=== PATIENT | male | born 1955 | race Caucasian/White ===

== ENCOUNTER 2020-05-26 03:15 | Inpatient (IN) | payer MEDICARE, OTHER ==
[~2020-05-26] VITALS: Ht 172.7 cm; Wt 88.1 kg
[2020-05-26] MEDS ORDERED: POTCHL20ER PO (03:54)
[2020-05-26] MEDS ORDERED: FURO80 PO (03:55)
[2020-05-26] MEDS ORDERED: HYDROCODONE-AC1 EAC5 PO (03:56)
[2020-05-26] MEDS ORDERED: LORA.5 PO (03:58)
[2020-05-26] MEDS ORDERED: ALBU90OI INH (03:58)
[2020-05-26] MEDS ORDERED: HUMULIN 70100 UNIT/4 (04:00)
[2020-05-26] MEDS ORDERED: HUMULIN 70100 UNIT/4 SC ×2 (04:01→04:02)
[2020-05-26] MEDS ORDERED: ATOR40TA PO (04:03)
[2020-05-26] MEDS ORDERED: NITROSTAT SL (04:05)
[2020-05-26] MEDS ORDERED: OMEP20ER PO (04:06)
[2020-05-26 05:38] LABS: BASOPHILS ABSOLUTE AUTO 0.03 K/mm3 (0.00-0.23); BASOPHILS PERCENT AUTO 1 % (0-2); EOSINOPHILS ABSOLUTE AUTO 0.08 K/mm3 (0.00-0.68); EOSINOPHILS PERCENT AUTO 1 % (0-6); Hematocrit 49.7 % (37.0-53.0); Hemoglobin 15.2 g/dL (13.5-17.5); IMMATURE GRAN ABSOLUTE AUTO 0.01 K/mm3 (0.00-0.10); IMMATURE GRAN PERCENT AUTO 0 % (0-1); LYMPHOCYTES PERCENT AUTO 16 % (21-46); MONOCYTES ABSOLUTE AUTO 0.58 K/mm3 (0.16-1.47); MONOCYTES PERCENT AUTO 9 % (4-13); Mean Corpuscular HGB 27.3 pg (26.0-34.0); Mean Corpuscular HGB Conc 30.6 g/dL (31.5-36.5); Mean Corpuscular Volume 89 fL (80-100); Mean Platelet Volume 11.2 fL (9.1-12.4); NEUTROPHILS ABSOLUTE AUTO 4.47 K/mm3 (1.96-9.15); NEUTROPHILS PERCENT AUTO 72 % (41-73); Platelet Count 236 K/mm3 (150-400); RDW Coefficient Variation 17.1 % (11.7-14.2); RDW Standard Deviation 55.5 fL (35.1-46.3); Red Blood Cell Count 5.56 M/mm3 (4.30-5.90); White Blood Cell Count 6.17 K/mm3 (4.00-11.30)
--- NOTE | 2020-05-26 06:15 | NUR ---
IO RIGHT LEG IO DC'D WITHOUT DIFFICULTY. PRESSURE HELD X 4-5 MINUTES AND DRSG APPLIED.
[2020-05-26 06:24] LABS: Alanine Aminotransfer (ALT/SGP 21 U/L (12-78); Albumin, Blood 1.5 g/dL (3.4-5.0); Albumin/Globulin Ratio 0.3 (0.8-1.8); Alk Phos 288 U/L (50-136); Anion Gap 4 mmol/L (6-16); Aspartate Aminotrans (AST/SGOT 25 U/L (12-37); Bilirubin, Total 0.4 mg/dL (0.1-1.0); Blood Urea Nitrogen 32 mg/dL (8-24); Bun/Creatinine Ratio 29.4 (12.0-20.0); CO2, Blood 30 mmol/L (21-32); Chloride, Blood 103 mmol/L (98-108); Creatinine, Blood 1.09 mg/dL (0.60-1.20); Globulin, Blood 5.1 g/dL (2.2-4.0); Glomerular Filtration Rate >60 (60-); Glucose, Blood 205 mg/dL (70-99); Potassium, Blood 4.5 mmol/L (3.5-5.5); Sodium, Blood 137 mmol/L (136-145); Total Protein, Blood 6.6 g/dL (6.4-8.2); Troponin I 0.293 ng/mL (0.000-0.040)
[2020-05-26 06:31] LABS: Source, Urine Catheter
[2020-05-26 06:38] LABS: Bilirubin, Urine Neg (Neg); Blood, Urine 5+ (Neg); Glucose Qualitative, Urine 1+ (Neg); Ketones, Urine Neg (Neg); Leukocyte Esterase, Urine 1+ (Neg); Nitrite, Urine Neg (Neg); Protein, Urine 3+ (Neg); Specific Gravity, Urine 1.015 (1.003-1.022); Urobilinogen, Urine NORM (Normal)
[2020-05-26 06:51] LABS: Appearance, Urine Clear (Clear); Color, Urine Yellow (P-Yellow)
[2020-05-26 06:53] LABS: Bacteria Rare /hpf; Squamous Epithelial Cells Few /hpf (Few); White Blood Cells, Urine 25-50 /hpf (0-5)
[2020-05-26 06:54] LABS: Hyaline Casts 0-2 /lpf (0-2)
--- NOTE | 2020-05-26 07:26 | NUR ---
ADMISSION NOTE PATIENT ADMITTED TO ICU 10 FROM THE EMERGENCY DEPARTMENT. THE PATIENT WAS A TRANSFER FROM [facility]. HE WAS ADMITTED FOR CHF EXCACERBATION. HE ARRIVED TO THE UNIT ON ROOM AIR. HIS OXYGEN SATURATION WAS IN THE LOW 80S AND HE WAS TACHYPNEIC AND DYSPNEIC. BIPAP RE-APPLIED. OXYGEN SATURATIONS IMPROVED AND WERE STABLE WITH AN FIO2 OF 25%. LUNGS ARE COARSE WITH EXP. WHEEZES. WORK OF BREATHING IMPROVED WITH BIPAP. PATIENT HESISTANT TO WEAR IT, BUT WAS COMPLIANT WITH WEARING AFTER EDUCATION. HE IS DROWSY, BUT DOES AWAKEN TO ANSWER QUESTIONS APPROPRIATELY. HE IS ORIENTED X 3. HE FALLS ALSEEP IMMEDIATELY WHEN NOT BEING SPOKEN TO. HE HAS 4+ PITTING EDEMA THROUGHOUT (ALL EXTREMTIES, ANASARCA, AND SCROTAL). PULSES ARE DIFFICULT TO PALPATE. RIGHT PEDAL PULSE AUDIBLE VIA DOPPER. 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 WELL HEALED. HE IS NPO AT THIS TIME. ARRIVED WITH CONDOM CATHETER IN PLACE. THE PATIENT HAS SCATTERED WOUNDS OF VARIOUS STATES OF HEALING ON UPPER EXTREMTIES BILATERALLY AND THE RLE. MOST SIGNIFICANTLY THERE IS A WOUND TO THE RIGHT ANTERIOR FOOT WITH ESCHAR PRESENT. THERE IS SIGNIFICANT EXCORIATION TO THE GROIN. ALL EXTREMITIES ARE WEEPING. SKIN TEARS PRESENT RELATED TO WEEPING. FOAM BORDER APPLIED TO COCCYX PROPHYLACTICALLY. ALBUMIN GIVEN AND ANTIOBIOTICS STARTED. MIDLINE PLACED WITH GOOD BLOOD RETURN. PIV X 1 IN RIGHT HAND.
--- NOTE | 2020-05-26 08:54 | NUR ---
CARE ASSUMED ASSESSMENT COMPLETED, PT DROWSY, WAKES TO VERBAL, ORIENTED X4, VERY IRRITABLE BUT REMAINS COOPERATIVE WITH CARE. VSS, SPO2 99% ON BIPAP SETTINGS 08/22, FIO2 DECREASED TO 21% BY RT. LS WITH CRACKLES IN BASES. SKIN IN POOR CONDITION, LE'S RED AND WARM, MULTIPLE DIABETIC/STASIS WOUNDS TO RLE, SEE PICS. L AKA, WELL HEALED. DIFFUSE 3+ EDEMA WITH UE'S WEEPING. CONDOM CATH IN PLACE WITH CLEAR YELLOW URINE.
--- NOTE | 2020-05-26 12:34 | NUR ---
UPDATE DR. ARNDT AT BEDSIDE TO ASSESS PATIENT, NEW ORDERS, PT NOW PCU STATUS. PT HAS BEEN SLEEPY T/O SHIFT, WAKES EASILY, REMAINS ORIENTED, IS NO LONGER IRRITABLE. APPROPRIATE AND COOPERATIVE. HR 90-105 SINUS, BP STABLE, LS HAVE CLEARED WITH LASIX. VOLUME OF URINE OUTPUT NOT LARGE EXPECTED AFTER LASIX, PT REMAINS SEVERELY EDEMATOUS, UE'S WEEPING. ALL EXTREMS ELEVATED ON PILLOWS. SPO2 LOW 90'S ON 21% FIO2 WITH BIPAP 08/22, DESAT MINIMAL, NOT LESS THAN 88% WHEN BIPAP REMOVED FOR ORAL CARE. DIET ORDERED, WILL ALLOW PT TO EAT IF SPO2 MAINTAINED >88%.
[2020-05-26 13:02] LABS: Base Excess Venous 6.6 mmol/L; Bicarbonate Venous 27.1 mmol/L (24.0-30.0); PCO2 Venous 61.6 mmHg (38-42); PO2 Venous 28.3 mmHg (38-42); pH Blood Venous 7.33 (7.34-7.37)
[2020-05-26 13:37] LABS: Troponin I 0.237 ng/mL (0.000-0.040)
--- NOTE | 2020-05-26 17:57 | NUR ---
END OF SHIFT/PCU TRANSFER PT HAS HAD BIPAP OFF SINCE LUNCH, TOELRATING WELL. REMAINS SOB WITH EXERTION BUT REPORTS COMFORT AT REST WITH 1L/NC, SPO2 >90%. LS CLEAR, DIM IN BASES, 1100ML URINE OUTPUT THIS SHIFT. VSS, HR 90-105 SINUS WITH PVC'S, EDEMA UNCHANGED. BUE'S CONTINUE TO WEEP. PT REMAINS ORIENTED X4, PLEASANT AND COOPERATIVE THIS EVENING. NO BM TODAY, SKIN TO BACK AND COCCYX INATACT WITH NO REDNESS NOTED. PT TO PCU 8 AT 1755 WITH MEDS, CHART, AND BELONGINGS, TOLERATED TRANSFER WELL. REPORT TO RECEIVING NURSE.
--- NOTE | 2020-05-26 18:23 | NUR ---
PT RECEIVED FROM ICU 10 REPORT RECEIVED FROM NIKKI ABDI. PT IS HERE FOR ACUTE CHF. PT ALERT AND ORIENTED, VITALS HRR SR/ST WITH PVCS 90-100'S, BP SYSTOLIC 130'S, SATS ABOVE 94% ON 1L OF O2, AFEBRILE. PT HAS BUE AND BLE 2+ TO 4+ PITTING/WEEPING EDEMA. LEFT AKA, WOUNDS AND SCABS ON RLE. FINE CRACKLES ON BILATERAL LOBES. ABLE TO MAKE NEEDS KNOWN, CURRENTLY IN BED CALL LIGHTS WITHIN REACH WILL REPORT TO ONCOMING SHIFT
--- NOTE | 2020-05-27 | NUR ---
PT NEEDED ADDITIONAL D50W FOR BLOOD GLUCOSE LEVELS THAT DROP TO 33. GLUCOSE LEVELS IMPROVE WITH THIS. WITH HS MEDICATIONS, DID SAFE SWALLOW TECHNIQUE TEACHING WHEREAS PT DEMONSTRATES UNDERSTANDING OF CHIN TUCK WITH MEDS AND APPLESAUCE. NO COUGH OR ISSUES WITH SWALLOW. WILL CONTINUE TO DO SPOT CHECKS OF GLUCOSE LEVELS.
[2020-05-27 01:29] LABS: BASOPHILS ABSOLUTE AUTO 0.02 K/mm3 (0.00-0.23); BASOPHILS PERCENT AUTO 0 % (0-2); EOSINOPHILS ABSOLUTE AUTO 0.16 K/mm3 (0.00-0.68); EOSINOPHILS PERCENT AUTO 2 % (0-6); Hematocrit 47.6 % (37.0-53.0); Hemoglobin 14.3 g/dL (13.5-17.5); IMMATURE GRAN ABSOLUTE AUTO 0.01 K/mm3 (0.00-0.10); IMMATURE GRAN PERCENT AUTO 0 % (0-1); LYMPHOCYTES ABSOLUTE AUTO 1.04 K/mm3 (0.84-5.20); LYMPHOCYTES PERCENT AUTO 15 % (21-46); MONOCYTES ABSOLUTE AUTO 0.68 K/mm3 (0.16-1.47); MONOCYTES PERCENT AUTO 10 % (4-13); Mean Corpuscular HGB 26.8 pg (26.0-34.0); Mean Corpuscular Volume 89 fL (80-100); Mean Platelet Volume 11.1 fL (9.1-12.4); NEUTROPHILS ABSOLUTE AUTO 4.89 K/mm3 (1.96-9.15); NEUTROPHILS PERCENT AUTO 72 % (41-73); Platelet Count 231 K/mm3 (150-400); RDW Coefficient Variation 17.2 % (11.7-14.2); RDW Standard Deviation 55.7 fL (35.1-46.3); Red Blood Cell Count 5.33 M/mm3 (4.30-5.90)
[2020-05-27 01:45] LABS: Anion Gap 3 mmol/L (6-16); Blood Urea Nitrogen 36 mg/dL (8-24); Bun/Creatinine Ratio 31.3 (12.0-20.0); CO2, Blood 32 mmol/L (21-32); Calcium, Blood 8.3 mg/dL (8.5-10.1); Chloride, Blood 103 mmol/L (98-108); Creatinine, Blood 1.15 mg/dL (0.60-1.20); Glomerular Filtration Rate >60 (60-); Glucose, Blood 129 mg/dL (70-99); Potassium, Blood 5.1 mmol/L (3.5-5.5); Sodium, Blood 138 mmol/L (136-145)
--- NOTE | 2020-05-27 06:16 | NUR ---
SHIFT SUMMARY PT WAS EXPERIANCING CHF SYMPTOMS WITH 4+ EDEMA IN LOWER RIGHT LEG, LEFT LEG WAS AKA. ARMS SHOWED 3+ PITTING EDEMA, ALL EXTREMITIES WERE COOL TO TOUCH. MOVEMENT IN LEG WAS SIGNIFICANTLY LIMITED, ULCERS ON RIGHT FOOT. PT HAD ELEVATED BP BUT WAS CORRECTED WITH ORDERED MEDS. PT WAS ON BIPAP SATTING AROUND 85-90%, SWITCHED TO NC AT 2LPM AND SATS REMAINED AROUND 95%. PT STATED PAIN ON RIGHT LEG AT IO SITE. PT WAS ABLE TO EAT CRACKERS AND A SANDWICH, DIET WAS ADVANCED. BED IN LOWEST POSITION, CALL LIGHT IN REACH. WILL CONTINUE TO MONITOR UNTIL SHIFT CHANGE.
--- NOTE | 2020-05-27 07:24 | NUR ---
ASSUMED PATIENT CARE. PATIENT RESTING COMFORTABLY IN BED, CONVERSING WITH NURSING STAFF. NO SIGNS OF ACUTE DISTRESS, WCTM.
[2020-05-27 07:32] LABS: Troponin I 0.188 ng/mL (0.000-0.040)
--- NOTE | 2020-05-27 08:32 | NUR ---
PATIENT STATES THAT HE FEELS "LIKE I CHOKED ON SOMETHING" DURING BREAKFAST, PATIENT STATES THAT HE CLEARED THE FOOD, BUT FEELS THAT HE STILL CATCHING UP ON BREATHING. NC APPLIED, MAINTAINED O2 SATS IN UPPER 90S, WCTM.
--- NOTE | 2020-05-27 09:15 | NUR ---
ISTRATE NOTIFIED OF PATIENT ASPIRATION AND INCREASED WOB, CXR AND SPEECH EVAL ORDERED.
--- NOTE | 2020-05-27 17:07 | NUR ---
PATIENT HAD EPISODE OF POSSIBLE FOOD ASPIRATION DURING BREAKFAST THIS MORNING, NOT WITNESSED BY THIS RN. DR. ARNDT NOTIFIED, CXR AND SPEECH EVAL ORDERED, PATIENT NPO FOR REEVALUATION BY SPEECH TOMORROW. PATIENT HAD BLOOD SUGAR OF 60 THIS MORNING, ORANGE JUICE GIVEN, BLOOD SUGAR INCREASED TO 84, THEN BREAKFAST GIVEN. PRE-BREAKFAST DOSE OF INSULIN LISPRO HELD ACCORDING TO ORDER PARAMETERS. CHECKED WITH PHYSICIAN REGARDING LONG ACTING INSULIN COVERAGE THIS MORNING AFTER INCIDENCE OF LOW BLOOD SUGAR, GAVE ORDERED BY MD. PATIENT BLOOD SUGAR 33, ORDERS FOR DEXTROSE GIVEN AND ADMINISTERED, BLOOD SUGAR IMPROVED TO 100+, APPLESAUCE GIVEN BY CHEIKH RN PER SPEECH THERAPY. WCTM. PATIENT CONTINUES ON IV DIURESIS. PATIENT STATES GENERAL DISCOMFORT, TYLENOL AND FENTANYL OFFERED AND ADMINISTERED EACH ONCE THIS SHIFT, PATIENT STATED THAT THESE MEDICATIONS "DON'T DO ANYTHING FOR ME." CARDIOLOGY CONSULT DONE TODAY, RECORDS FROM [facility] REGARDING RECENT CARDIOLOGY RELATED ADMISSION REQUESTED. PATIENT DENIED CHEST PAIN THIS SHIFT.
--- NOTE | 2020-05-27 20:00 | NUR ---
ASSUMED CARE OF PT AT 1915 REPORT RECEIVED. PT PRESENTS IN BED. SOMEWHAT IRRITABLE WITH CONVERSATION. PT IN NO APPARENT DISTRESS AT THIS TIME. WILL REVIEW CHART AND PLAN OF CARE FOR THIS PT.
[2020-05-28 03:51] LABS: BASOPHILS ABSOLUTE AUTO 0.03 K/mm3 (0.00-0.23); BASOPHILS PERCENT AUTO 1 % (0-2); EOSINOPHILS PERCENT AUTO 2 % (0-6); Hematocrit 47.3 % (37.0-53.0); Hemoglobin 14.4 g/dL (13.5-17.5); IMMATURE GRAN ABSOLUTE AUTO 0.01 K/mm3 (0.00-0.10); IMMATURE GRAN PERCENT AUTO 0 % (0-1); LYMPHOCYTES ABSOLUTE AUTO 1.14 K/mm3 (0.84-5.20); LYMPHOCYTES PERCENT AUTO 20 % (21-46); MONOCYTES ABSOLUTE AUTO 0.69 K/mm3 (0.16-1.47); MONOCYTES PERCENT AUTO 12 % (4-13); Mean Corpuscular HGB Conc 30.4 g/dL (31.5-36.5); Mean Corpuscular Volume 89 fL (80-100); NEUTROPHILS ABSOLUTE AUTO 3.75 K/mm3 (1.96-9.15); NEUTROPHILS PERCENT AUTO 66 % (41-73); Platelet Count 245 K/mm3 (150-400); RDW Coefficient Variation 16.9 % (11.7-14.2); RDW Standard Deviation 54.9 fL (35.1-46.3); Red Blood Cell Count 5.34 M/mm3 (4.30-5.90); White Blood Cell Count 5.72 K/mm3 (4.00-11.30)
[2020-05-28 04:14] LABS: Anion Gap 4 mmol/L (6-16); Blood Urea Nitrogen 33 mg/dL (8-24); Bun/Creatinine Ratio 33.4 (12.0-20.0); CO2, Blood 33 mmol/L (21-32); Calcium, Blood 8.3 mg/dL (8.5-10.1); Chloride, Blood 103 mmol/L (98-108); Creatinine, Blood 0.99 mg/dL (0.60-1.20); Glomerular Filtration Rate >60 (60-); Glucose, Blood 51 mg/dL (70-99); Magnesium, Blood 1.9 mg/dL (1.6-2.4); Potassium, Blood 4.7 mmol/L (3.5-5.5); Sodium, Blood 140 mmol/L (136-145)
--- NOTE | 2020-05-28 05:09 | NUR ---
PT HAS HAD SEVERAL EPISODES OF 16-20 BEATS V-TACH THIS NIGHT. REVIEW OF AM LABS REVEAL NO ISSUES WITH ELECTROLYTES. PT HAS DECREASE IN GLUCOSE LEVELS AGAIN THIS AM. (37) COVERED WITH ANOTHER DOSE OF D50W. PT'S SUBSEQUENT CHECK REVEALS >100. PT HAS BEEN ABLE TO TOLERATE Q 2 HOUR TURNS IN BED. DOES HAVE SOME WEAPING EDEMA. WILL CONTINUE TO MONITOR PT, AND WILL REPORT OFF TO ONCOMING RN.
--- NOTE | 2020-05-28 10:10 | NUR ---
ASSUMED CARE AT 0700, REPORT FROM JIN PARRISH. RESTING IN BED IN LOW FOWLERS. A/A/OX4. 02 VIA NC 2L, CONDOM CATH IN PLACE DRAINING CLEAR URINE TO GRAVITY. LEFT LEG ABOVE KNEE AMPUTATION. RIGHT LEG WARM AND RED FROM MID THIGH TO FOOT. MULTIPLE AREAS OF SCABS AND EXCORATIONS ON RIGHT LEG. QUARTER SIZED BLACK DRY SCAB TO RIGHT FOOT NEAR FIRST TOE. MEPILEX IN PLACE ON COCCYX FOR REDNESS, BILATERAL REDNESS AND EXCORIATIONS OF ARMS FROM MID UPPER ARM TO HANDS. BILATERAL HAND SWELLING AND SCROTAL SWELLING NOTED. L/S COARSE THROUGHOUT. NPO AT THIS TIME, DUE TO SWALLOW PRECAUTIONS. CHEMBGS LOW DURING NIGHT, WILL CONTINUE TO MONITOR AND TREAT NEEDED.
[2020-05-28 12:29] LABS: U Amphetamine Screen Not Detected; U Barbituate Screen Not Detected; U Benzodiazapine Screen Not Detected; U Buprenorphine Screen Not Detected; U Cannabinoids Screen DETECTED; U Cocaine Screen Not Detected; U Methadone Screen Not Detected; U Methamphetamine Screen DETECTED; U Opiates Screen DETECTED; U Oxycodone Screen Not Detected; U Phencyclidine Screen Not Detected; U Propoxyphene Screen Not Detected
--- NOTE | 2020-05-28 14:05 | NUR ---
MEPILEX TO COCCYX CHANGED. REDDNED SKIN AT COCCYX, NO WOUND AT THIS TIME.
--- NOTE | 2020-05-28 18:10 | NUR ---
SHIFT SUMMARY: A/A/OX4 THROUGHOUT SHIFT. Q2 REPOSITIONING. VSS, BLOOD SUGAR IMPROVED THROUGHOUT DAY. SOFT MECHANICAL DIET WITH GOOD APPETITE. D5 DC'D AT THIS TIME. WILL CONTINUE MONITOR BLOOD SUGARS AND TREAT NECESSARY. 02 2L VIA NC. SEE PREVIOUS NOTES ON SKIN CONDITION. POWER GLIDE TO UPPER LEFT ARM SALINE LOCKED. WILL CONTINUE TO MONITOR AND TREAT UNTIL CHANGE OF SHIFT.
--- NOTE | 2020-05-28 20:21 | NUR ---
RECEIVED REPORT FROM KAYA ABDI. ASSUMED CARE OF PT. PT A&O X4, NO DISTRESS NOTED AT THIS TIME
[2020-05-29 04:15] LABS: BASOPHILS ABSOLUTE AUTO 0.03 K/mm3 (0.00-0.23); BASOPHILS PERCENT AUTO 1 % (0-2); EOSINOPHILS ABSOLUTE AUTO 0.14 K/mm3 (0.00-0.68); EOSINOPHILS PERCENT AUTO 3 % (0-6); Hematocrit 43.1 % (37.0-53.0); Hemoglobin 13.2 g/dL (13.5-17.5); IMMATURE GRAN ABSOLUTE AUTO 0.01 K/mm3 (0.00-0.10); IMMATURE GRAN PERCENT AUTO 0 % (0-1); LYMPHOCYTES ABSOLUTE AUTO 0.91 K/mm3 (0.84-5.20); LYMPHOCYTES PERCENT AUTO 18 % (21-46); MONOCYTES ABSOLUTE AUTO 0.57 K/mm3 (0.16-1.47); MONOCYTES PERCENT AUTO 11 % (4-13); Mean Corpuscular HGB 27.4 pg (26.0-34.0); Mean Corpuscular HGB Conc 30.6 g/dL (31.5-36.5); Mean Corpuscular Volume 90 fL (80-100); Mean Platelet Volume 11.1 fL (9.1-12.4); NEUTROPHILS ABSOLUTE AUTO 3.34 K/mm3 (1.96-9.15); NEUTROPHILS PERCENT AUTO 67 % (41-73); Platelet Count 229 K/mm3 (150-400); RDW Coefficient Variation 16.8 % (11.7-14.2); RDW Standard Deviation 55.1 fL (35.1-46.3); Red Blood Cell Count 4.81 M/mm3 (4.30-5.90)
[2020-05-29 04:35] LABS: Albumin, Blood 1.5 g/dL (3.4-5.0); Anion Gap 3 mmol/L (6-16); Blood Urea Nitrogen 30 mg/dL (8-24); Bun/Creatinine Ratio 29.1 (12.0-20.0); CO2, Blood 34 mmol/L (21-32); Calcium, Blood 7.8 mg/dL (8.5-10.1); Chloride, Blood 103 mmol/L (98-108); Creatinine, Blood 1.03 mg/dL (0.60-1.20); Glomerular Filtration Rate >60 (60-); Glucose, Blood 130 mg/dL (70-99); Magnesium, Blood 1.7 mg/dL (1.6-2.4); Phosphorus, Blood 3.6 mg/dL (2.5-4.9); Potassium, Blood 4.9 mmol/L (3.5-5.5); Sodium, Blood 140 mmol/L (136-145)
--- NOTE | 2020-05-29 04:59 | NUR ---
SHIFT SUMMERY: PT ALERT AND AWAKE THROUGH MOST OF NOC SHIFT, SMALL PERIODS OF SLEEP, APPROX 4-5HRS. REPOSITIONED FREQUENTLY THOUGHOUT SHIFT, 3+ANASARCA, EDEMATOUS EXTREMITIES ELEVATED ON PILLOWS, HX LT AKA. SKIN ULCERATIONS TO RT LE DRY, VARIOUS STATES OF HEALING. SCROTUM REMAINS VERY SWOLLEN & TAUT, CONDOM CATH INTACT, PATENT WITH CLEAR YELLOW URINE. MILD DYSPNEA WITH REPOSITIONING, PT TOLERATES FAIRLY WELL. MEPALEX DRSG TO COCCYX CHANGED DUE TO SMALL AMOUNT OF STOOL ON PREVIOUS DRESSING. MEDICATED TWICE DURING SHIFT FOR PAIN TO RIGHT LEG WELL GENERALIZED PAIN, FAIR RESULTS WITH PAIN MED. TOLERATED SNACKS WITHOUT ANY S/S SWALLOWING DISTRESS. WILL CONTINUE TO MONITOR
--- NOTE | 2020-05-29 05:32 | NUR ---
REPOSITIONED PT, BREATHING APPEARS LESS DISTRESSED. REASSESSED LUNG SOUNDS, DIMINISHED IN UPPER BASSES, CRACKLES IN LOWER BASES. NO AUDIBLE WHEEZES. CONTINUES WITH O2 AT 2LPM VIA NC
--- NOTE | 2020-05-29 08:34 | NUR ---
ASSUMED CARE AT 0700, REPORT FROM JIN MUNROE. SITTING IN HIGH SUPINE POSITION. A/A/OX4. [address] AT 2L NC. SKIN AND WOUNDS UNCHANGED FROM PREVIOUS SHIFT. BILATERAL ARM REDNESS, RIGHT LEG REDDNESS FROM MID THIGH TO FOOT. MULTIPLE DRY SCABS TO ARMS AND RIGHT LEG. RIGHT FOOT WARM, PEDAL PULSE PALBABLE. EDEMA NOTED TO FOOT. SEE PHOTOS IN CHART AND PREVIOUS CHARTING.
--- NOTE | 2020-05-29 18:35 | NUR ---
SHIFT SUMMARY; A/A/OX4 THROUGHOUT SHIFT TODAY. REPOSITIONED Q2 THROUGHOUT SHIFT. 02 VIA NC 2L. PAIN TO RIGHT LEG DURING SHIFT. MEDICATED WITH PAIN MEDS ORDERED. WEAPING FROM EDEMA IMPROVED TODAY. BLOOD SUGAR STABLE TODAY WITH HUMALOG COVERAGE NEEDED. CONDOM CATH IN PLACE DRAINING TO GRAVITY DRAINAGE BAG. WILL CONTINUE TO MONITOR UNTIL CHANGE OF SHIFT.
--- NOTE | 2020-05-29 19:28 | NUR ---
ASSUMED CARE OF PT, RECEIVED REPORT FROM KAYA ABDI. PT A&O, SITTING UP IN BED WATCHING TV. NO APPARENT DISTRESS VISABLE
--- NOTE | 2020-05-30 01:56 | NUR ---
APPROX 0130 PT STATED HE FELT MORE SOB. O2 REMAINS AT 2L/M, SATS 94%. REQUESTED MEDNEB TX, DELIVERED BY RT. PT REQUESTED BIPAP AFTER TX. PLACED ON BIPAP BY RT. NO SEVERE RESP DISTRESS OBSERVED THOUGHOUT THIS TIME FRAME. PT NOW RESTING COMFORTABLY WITH BIPAP IN PLACE. REFER TO RESP NOTES
[2020-05-30 03:24] LABS: BASOPHILS ABSOLUTE AUTO 0.03 K/mm3 (0.00-0.23); BASOPHILS PERCENT AUTO 1 % (0-2); EOSINOPHILS PERCENT AUTO 2 % (0-6); Hematocrit 43.6 % (37.0-53.0); Hemoglobin 13.4 g/dL (13.5-17.5); IMMATURE GRAN ABSOLUTE AUTO 0.01 K/mm3 (0.00-0.10); IMMATURE GRAN PERCENT AUTO 0 % (0-1); LYMPHOCYTES ABSOLUTE AUTO 1.09 K/mm3 (0.84-5.20); LYMPHOCYTES PERCENT AUTO 19 % (21-46); MONOCYTES ABSOLUTE AUTO 0.71 K/mm3 (0.16-1.47); MONOCYTES PERCENT AUTO 12 % (4-13); Mean Corpuscular HGB 27.3 pg (26.0-34.0); Mean Corpuscular HGB Conc 30.7 g/dL (31.5-36.5); Mean Corpuscular Volume 89 fL (80-100); Mean Platelet Volume 11.2 fL (9.1-12.4); NEUTROPHILS ABSOLUTE AUTO 3.88 K/mm3 (1.96-9.15); NEUTROPHILS PERCENT AUTO 67 % (41-73); Platelet Count 232 K/mm3 (150-400); RDW Coefficient Variation 16.7 % (11.7-14.2); Red Blood Cell Count 4.91 M/mm3 (4.30-5.90); White Blood Cell Count 5.82 K/mm3 (4.00-11.30)
--- NOTE | 2020-05-30 03:36 | NUR ---
PT REQUESTED BIPAP TO BE REMOVED. PLACED ON O2 @ 2L/M VIA N/C. PULSE OX @ 96% WILL CONTINUE TO MONITOR
[2020-05-30 03:39] LABS: Albumin, Blood 1.6 g/dL (3.4-5.0); Anion Gap 1 mmol/L (6-16); Blood Urea Nitrogen 35 mg/dL (8-24); Bun/Creatinine Ratio 32.1 (12.0-20.0); CO2, Blood 35 mmol/L (21-32); Calcium, Blood 8.2 mg/dL (8.5-10.1); Chloride, Blood 102 mmol/L (98-108); Creatinine, Blood 1.09 mg/dL (0.60-1.20); Glomerular Filtration Rate >60 (60-); Glucose, Blood 153 mg/dL (70-99); Magnesium, Blood 1.8 mg/dL (1.6-2.4); Phosphorus, Blood 3.3 mg/dL (2.5-4.9); Potassium, Blood 5.2 mmol/L (3.5-5.5); Sodium, Blood 138 mmol/L (136-145)
--- NOTE | 2020-05-30 04:53 | NUR ---
SHIFT SUMMARY: PT A&O THROUGH SHIFT. SMALL PERIODS OF SLEEP BETWEEN REPOSITIONING. C/O RESP DISTRESS AROUND 0200, PLACED ON BIPAP UNTIL APPROX 330. PT STATED HE FELT BETTER, APPEARS COMFORTABLE AND LESS ANXIOUS. SATS REMAIN >90. MEDICATED TWICE FOR PAIN IN RIGHT LEG WITH FAIR RESULTS. CONDOM CATH REMAINS INTACT, PATENT WITH YELLOW URINE. SCOTUM STILL SWOLLEN AND TAUT. EDEMATOUS ARMS AND RIGHT LEG REMAIN ELEVATED ON PILLOWS THROUGHOUT SHIFT.
--- NOTE | 2020-05-30 15:44 | NUR ---
ASSUMED CARE AT 0700, REPORT FROM LUDWIG. A/A/OX4 ON SITTING IN HIGH RAY. O2 VIA NC AT 2L. ARMS ELEVATED BILAERALLY WITH PILLOWS. REDNESS AND EDEMA TO ARMS AND HANDS DECREASED FROM PREVIOUS DAY. CONDOM CATH IN PLACE DRAINING CLEAR YELLOW URINE. SCROTOM REMAINS EDEMATOUS. PT REPORTS IMPROVEMENT TO EDEMA. STATES HE IS FEELING BETTER. RIGHT LEG ELEVATED ON PILLOW. REMAINS RED FROM MID THIGH TO FOOT. MULTIPLE SCABS TO LEG AND FOOT. RIGHT PEDAL PULSE MARKED AND PALPABLE. EDEMA TO RIGHT LEG AND FOOT IMPROVING FROM PREVIOUS SHIFT. WILL CONTINUE TO MONTIOR AND TREAT.
[2020-05-30 17:32] LABS: Vancomycin, Trough 15.4 ug/mL (5.0-10.0)
--- NOTE | 2020-05-30 18:14 | NUR ---
SHIFT SUMMARY: A/A/OX4 THROUGHOUT SHIFT. FREQUENT REPOSITIONING MAINTAINED. ARMS BILATERALLY ELEVATED WITH PILLOWS. RIGHT LEG ELEVATED AND REPOSITIONED FREQUENTLY. CONDOM CATH IN PLACE DRAINING TO GRAVITY DRAINAGE BAG CLEAR YELLOW URINE. 02 VIA NC 2L. EDEMA RIGHT FOOT AND SCROTUM REMAINS. BILATERAL ARM REDNESS IMPROVED FROM PREVIOUS SHIFT. BILATERAL HAND EDEMA IMPROVED TO MODERATE. MEDICATED DURING SHIFT FOR PAIN WITH FENTANYL ORDERED. STATUS CHANGED TO MEDICAL TODAY. NO ACUTE CHANGES DURING SHIFT. WILL CONTINUE TO MONITOR AND TREAT UNTIL CHANGE OF SHIFT.
[2020-05-31 04:04] LABS: BASOPHILS ABSOLUTE AUTO 0.02 K/mm3 (0.00-0.23); BASOPHILS PERCENT AUTO 0 % (0-2); EOSINOPHILS ABSOLUTE AUTO 0.14 K/mm3 (0.00-0.68); EOSINOPHILS PERCENT AUTO 3 % (0-6); Hematocrit 42.4 % (37.0-53.0); Hemoglobin 13.1 g/dL (13.5-17.5); IMMATURE GRAN ABSOLUTE AUTO 0.01 K/mm3 (0.00-0.10); IMMATURE GRAN PERCENT AUTO 0 % (0-1); LYMPHOCYTES ABSOLUTE AUTO 0.91 K/mm3 (0.84-5.20); LYMPHOCYTES PERCENT AUTO 17 % (21-46); MONOCYTES ABSOLUTE AUTO 0.71 K/mm3 (0.16-1.47); MONOCYTES PERCENT AUTO 13 % (4-13); Mean Corpuscular HGB 27.5 pg (26.0-34.0); Mean Corpuscular HGB Conc 30.9 g/dL (31.5-36.5); Mean Corpuscular Volume 89 fL (80-100); Mean Platelet Volume 11.6 fL (9.1-12.4); NEUTROPHILS ABSOLUTE AUTO 3.65 K/mm3 (1.96-9.15); NEUTROPHILS PERCENT AUTO 67 % (41-73); Platelet Count 215 K/mm3 (150-400); RDW Coefficient Variation 16.6 % (11.7-14.2); RDW Standard Deviation 54.1 fL (35.1-46.3); Red Blood Cell Count 4.76 M/mm3 (4.30-5.90); White Blood Cell Count 5.44 K/mm3 (4.00-11.30)
[2020-05-31 04:20] LABS: Albumin, Blood 1.9 g/dL (3.4-5.0); Anion Gap 2 mmol/L (6-16); Blood Urea Nitrogen 32 mg/dL (8-24); Bun/Creatinine Ratio 36.3 (12.0-20.0); CO2, Blood 36 mmol/L (21-32); Calcium, Blood 8.3 mg/dL (8.5-10.1); Chloride, Blood 100 mmol/L (98-108); Creatinine, Blood 0.88 mg/dL (0.60-1.20); Glomerular Filtration Rate >60 (60-); Glucose, Blood 235 mg/dL (70-99); Phosphorus, Blood 3.3 mg/dL (2.5-4.9); Potassium, Blood 5.3 mmol/L (3.5-5.5); Sodium, Blood 138 mmol/L (136-145)
--- NOTE | 2020-05-31 06:38 | NUR ---
SHIFT SUMMARY PT ALERT AND ORIENTED. PT PAINFUL T/O SHIFT IN THE R LOWER LEG. REPOSITIONED NEEDED FOR COMFORT AND Q 2 HRS. MEDICATIONS GIVEN PER EMAR. PT REPORTS PAIN RELIEF. VS STABLE. OXYGEN SATURATION ABOVE 92% ON 3.5 L OF OXYGEN VIA NC. PT REPORTS NO CP OR PRESSURE. WILL CONTINUE TO MONITOR UNTIL REPORT GIVEN TO DAYSHIFT RN.
--- NOTE | 2020-05-31 10:12 | NUR ---
ASSESSMENT CONDOM CATH REMOVED DUE TO EDEMA AROUND THE PENIS/SCROTUM, CIRC WNL, PT DENIES PAIN, WILL REASSESS IN A FEW HOURS, EDGAR PADS PLACED, SCROTUM ELEVATED. EDGAR CARE & BED BATH COMPLETED BY HALLEY.
--- NOTE | 2020-05-31 16:19 | NUR ---
TRANSFER PT WILL BE TRANSFERRED TO THE MED FLOOR W/TELE, HE REMAINS A&O X4,3 L O2 VIA NC, DENIES SOB/CP. BELONGINGS SENT WITH PT. REPORT GIVEN TO DEVAN ABDI
--- NOTE | 2020-05-31 18:46 | NUR ---
SHIFT SUMMARY. PCU TRANSFER THIS AFTERNOON. A&OX4, BEDREST AT THIS TIME DUE TO WEAKNESS. CONDOM CATHETER PLACED PRIOR TO IV LASIX, PT REPORTS INCONTINENCE. CONTINUES WITH 2L O2 NC. GOOD MEAL INTAKE FOR DINNER. PT WITH DSYPNEA WITH LAYING FLAT DURING CARE, RECOVERS QUICKLY. POWERGLIDE MIDLINE NO LONGER DRAWING, THIS RN AND CN ATTEMPTED LAB DRAW. 2 LAB TECHS ATTEMPTED LAB DRAWS AND WERE UNSUCCESSFUL. HARNESS PLACER JACQUARD LOOM HEDDLES TIER TO ATTEMPT AT 1999, PHARMACY NOTIFIED VANCO TROUGH WAS NEEDED. NO OTHER CHANGES OR CONCERNS.
[2020-05-31 20:48] LABS: Vancomycin, Trough 20.1 ug/mL (5.0-10.0)
--- NOTE | 2020-06-01 03:03 | NUR ---
PT REFUSED BI-PAP, NURSE NOTIFIED
[2020-06-01] MEDS ORDERED: AMLO5 PO (04:52)
[2020-06-01] MEDS ORDERED: LISI10 PO (04:53)
[2020-06-01] MEDS ORDERED: METO50ER PO (04:53)
--- NOTE | 2020-06-01 05:15 | NUR ---
SHIFT SUMMARY A/O, ABLE TO MAKE NEEDS KNOWN. COOPERATIVE WITH CARE. CALLS AND ANSWERS QUESTIONS APPROPRIATELY. C/O PAIN/DISCOMFORT TO RLE; MEDICATED PER EMAR. REMAINED ON CONT BIOX AND O2 VIA NC T/O SHIFT; REFUSED TO WEAR BIPAP. TELE RUNNING SR @ 83 PER GASTROINTESTINAL TECHNICIAN. APPEARED TO REST OFF AND ON. VSS/AFEBRILE. CONDOM CATH REMAINS SECURE AND DRAINING TO GRAVITY FOR STRICT I/O's. NO ACUTE CHANGES NOTED OVERNIGHT. BED REAMINS IN LOWEST POSITION. CALL LIGHT AND BELONGINGS WITHIN REACH. WCTM. REPORT TO ONCOMING RN.
[2020-06-01 05:49] LABS: BASOPHILS ABSOLUTE AUTO 0.03 K/mm3 (0.00-0.23); BASOPHILS PERCENT AUTO 1 % (0-2); EOSINOPHILS ABSOLUTE AUTO 0.16 K/mm3 (0.00-0.68); EOSINOPHILS PERCENT AUTO 3 % (0-6); Hematocrit 45.7 % (37.0-53.0); Hemoglobin 14.1 g/dL (13.5-17.5); IMMATURE GRAN ABSOLUTE AUTO 0.03 K/mm3 (0.00-0.10); IMMATURE GRAN PERCENT AUTO 1 % (0-1); LYMPHOCYTES ABSOLUTE AUTO 1.13 K/mm3 (0.84-5.20); LYMPHOCYTES PERCENT AUTO 20 % (21-46); MONOCYTES ABSOLUTE AUTO 0.69 K/mm3 (0.16-1.47); MONOCYTES PERCENT AUTO 12 % (4-13); Mean Corpuscular HGB 27.4 pg (26.0-34.0); Mean Corpuscular HGB Conc 30.9 g/dL (31.5-36.5); Mean Corpuscular Volume 89 fL (80-100); Mean Platelet Volume 11.2 fL (9.1-12.4); NEUTROPHILS ABSOLUTE AUTO 3.67 K/mm3 (1.96-9.15); NEUTROPHILS PERCENT AUTO 64 % (41-73); Platelet Count 159 K/mm3 (150-400); RDW Coefficient Variation 16.5 % (11.7-14.2); RDW Standard Deviation 53.8 fL (35.1-46.3); Red Blood Cell Count 5.14 M/mm3 (4.30-5.90); White Blood Cell Count 5.71 K/mm3 (4.00-11.30)
[2020-06-01 06:08] LABS: Albumin, Blood 1.9 g/dL (3.4-5.0); Anion Gap 3 mmol/L (6-16); Blood Urea Nitrogen 34 mg/dL (8-24); Bun/Creatinine Ratio 38.5 (12.0-20.0); CO2, Blood 34 mmol/L (21-32); Calcium, Blood 8.5 mg/dL (8.5-10.1); Chloride, Blood 99 mmol/L (98-108); Creatinine, Blood 0.88 mg/dL (0.60-1.20); Glomerular Filtration Rate >60 (60-); Glucose, Blood 163 mg/dL (70-99); Phosphorus, Blood 3.5 mg/dL (2.5-4.9); Potassium, Blood 5.5 mmol/L (3.5-5.5); Sodium, Blood 136 mmol/L (136-145)
--- NOTE | 2020-06-01 18:36 | NUR ---
SHIFT SUMMARY. PT CONTINUES WITH 2L O2 NC. HOME O2 EVAL COMPLETED THIS AFTERNOON, PT QUALIFIED FOR O2, PORTABLE CONCENTRATOR DELIVERED BY [facility]. PT CONTINUES WITH PAIN TO RLE, PAIN MANAGED WELL WITH CURRENT ORDERS. PT REFUSED PHYSICAL THERAPY TODAY. CONTINUES WITH GENERALIZED WEEPING EDEMA TO ALL EXTREMITIES AND TRUNK 2-3+. PLAN IS FOR PT TO D/C EARLY IN THE AM, HIS FRIEND IS PLANNING ON PICKING HIM UP AT 0800, CN AWARE. DR. ARNDT WOULD LIKE TO BE CALLED AT 0730 BY RN IN REGARDS TO OBTAINING D/C ORDERS. NO OTHER CHANGES OR CONCERNS.
--- NOTE | 2020-06-02 04:38 | NUR ---
SHIFT SUMMARY PT HAS HAD NO ACUTE CHANGES THIS SHIFT, MEDICATED 1X FOR PAIN, NO OTHER C/O ANY KIND, PT AWAKE UNTIL AFTER 2AM WATCHING TV, SLEEPING AT THIS TIME, CALL LIGHT IN REACH, WILL CONT TO MONITOR UNTIL REPORT GIVEN TO NOC RN.
[2020-06-02 06:11] LABS: BASOPHILS ABSOLUTE AUTO 0.03 K/mm3 (0.00-0.23); BASOPHILS PERCENT AUTO 1 % (0-2); EOSINOPHILS ABSOLUTE AUTO 0.16 K/mm3 (0.00-0.68); EOSINOPHILS PERCENT AUTO 3 % (0-6); Hematocrit 41.5 % (37.0-53.0); Hemoglobin 12.8 g/dL (13.5-17.5); IMMATURE GRAN ABSOLUTE AUTO 0.01 K/mm3 (0.00-0.10); IMMATURE GRAN PERCENT AUTO 0 % (0-1); LYMPHOCYTES ABSOLUTE AUTO 0.86 K/mm3 (0.84-5.20); LYMPHOCYTES PERCENT AUTO 16 % (21-46); MONOCYTES ABSOLUTE AUTO 0.53 K/mm3 (0.16-1.47); MONOCYTES PERCENT AUTO 10 % (4-13); Mean Corpuscular HGB 27.5 pg (26.0-34.0); Mean Corpuscular HGB Conc 30.8 g/dL (31.5-36.5); Mean Corpuscular Volume 89 fL (80-100); Mean Platelet Volume 11.1 fL (9.1-12.4); NEUTROPHILS ABSOLUTE AUTO 3.66 K/mm3 (1.96-9.15); NEUTROPHILS PERCENT AUTO 70 % (41-73); Platelet Count 180 K/mm3 (150-400); RDW Coefficient Variation 16.5 % (11.7-14.2); RDW Standard Deviation 53.8 fL (35.1-46.3); Red Blood Cell Count 4.65 M/mm3 (4.30-5.90); White Blood Cell Count 5.25 K/mm3 (4.00-11.30)
[2020-06-02 06:25] LABS: Anion Gap 1 mmol/L (6-16); Blood Urea Nitrogen 32 mg/dL (8-24); Bun/Creatinine Ratio 37.2 (12.0-20.0); CO2, Blood 38 mmol/L (21-32); Calcium, Blood 8.5 mg/dL (8.5-10.1); Chloride, Blood 98 mmol/L (98-108); Creatinine, Blood 0.86 mg/dL (0.60-1.20); Glomerular Filtration Rate >60 (60-); Glucose, Blood 209 mg/dL (70-99); Magnesium, Blood 1.8 mg/dL (1.6-2.4); Potassium, Blood 5.1 mmol/L (3.5-5.5); Sodium, Blood 137 mmol/L (136-145)
[2020-06-02] MEDS ORDERED: NITR.4SL SL (08:25)
[2020-06-02] MEDS ORDERED: ACET325 PO (08:26)
[2020-06-02] MEDS ORDERED: Aspirin EC81 MG PO (08:26)
[2020-06-02] MEDS ORDERED: MAXI-TUSS G LI473 ML PO (08:28)
[2020-06-02] MEDS ORDERED: DOCU100 PO (08:28)
[2020-06-02] MEDS ORDERED: Norco 7.5-3251 EACH PO (08:30)
[2020-06-02] MEDS ORDERED: MAG-OXIDE MAGN200 MG PO (08:31)
[2020-06-02] MEDS ORDERED: LEVFLO500 PO (08:31)
[2020-06-02] MEDS ORDERED: ONDA4ODT MM (08:32)
[2020-06-02] MEDS ORDERED: NYSTOP15 GM TOP (08:32)
[2020-06-02] MEDS ORDERED: VISBIOME PROBIOTIC PO (08:33)
--- NOTE | 2020-06-02 10:36 | NUR ---
DISCHARGE PT DISCHARGED TO HOME WITH HOME HEALTH. THIS RN EXPLAINED DISCHARE INSTRUCTIONS AND MEDICATIONS TO PT AND HE REPORTS HE UNDERSTANDS. IV'S REMOVED WITHOUT DIFFICULTY. PT DECLINED TO TAKE AM MEDICATIONS. PT REPORTS HE WANTS TO TAKE HIS MEDICATIONS AT HOME. THIS RN ENCOURAGED PT TO MAKE SURE HE TAKES HIS MEDICATIONS ONCE HE PICKS THEM UP AT THE PHARMACY. PT REPORTS HE WILL. PT TRANSFERRED TO WHEELCHAIR TO [facility] VIA STAFF AND PT'S FRIEND. PT'S BELONGINGS WITH PT.
== END 2020-06-02 10:10 | disposition home health service (06) | DRG 280 ==
LOC: ER 03:15 → PCU 04:06 → ICUW 04:06 → PCU 17:59 → MEDS 05-31 16:24
PROVIDERS: Family Medicine; Internal Medicine; Internal Medicine Interventional Cardiology; ADMIT Internal Medicine
PROC: 5A09457 Assistance with Respiratory Ventilation, 24-96 Consecutive Hours, Continuous Positive Airway Pressure (ICD-10-PCS; principal; 2020-05-26)
DX: I13.0 Hypertensive heart and chronic kidney disease with heart failure and stage 1 through stage 4 chronic kidney disease, or unspecified chronic kidney disease (principal); J96.21 Acute and chronic respiratory failure with hypoxia; I21.A1 Myocardial infarction type 2; I50.23 Acute on chronic systolic (congestive) heart failure; J18.9 Pneumonia, unspecified organism; N39.0 Urinary tract infection, site not specified; L03.115 Cellulitis of right lower limb; R78.81 Bacteremia; Z20.828 Contact with and (suspected) exposure to other viral communicable diseases; I25.10 Atherosclerotic heart disease of native coronary artery without angina pectoris; E11.51 Type 2 diabetes mellitus with diabetic peripheral angiopathy without gangrene; E87.5 Hyperkalemia; E88.09 Other disorders of plasma-protein metabolism, not elsewhere classified; I16.0 Hypertensive urgency; F15.10 Other stimulant abuse, uncomplicated; B96.4 Proteus (mirabilis) (morganii) as the cause of diseases classified elsewhere; J43.9 Emphysema, unspecified; E11.40 Type 2 diabetes mellitus with diabetic neuropathy, unspecified; Z89.512 Acquired absence of left leg below knee; I25.2 Old myocardial infarction; E11.22 Type 2 diabetes mellitus with diabetic chronic kidney disease; N18.9 Chronic kidney disease, unspecified; Z95.5 Presence of coronary angioplasty implant and graft; Z79.4 Long term (current) use of insulin; F17.210 Nicotine dependence, cigarettes, uncomplicated; Z91.14 Patient's other noncompliance with medication regimen
CPT/HCPCS: 36415; 71045; 80048; 80053; 80069; 80202; 81001; 82550; 82803; 82947; 83605; 83735; 83880; 84484; 85025; 87077; 87086; 87186; 92526; 92610; 93005; 93010; 93306; 94640; 94660; 94664; 94667; 94761; 94762; 97110; 97162; 97167; 97530; 98960; 99285-25; A9270; A9270-GY; C1751; J0456; J0696; J1650; J1815; J1940; J1956; J3010; J3370; J7042; J7050; J7799; P9046